=== PATIENT | female | born 1995 | race Hispanic/Latino ===

== ENCOUNTER 2017-06-25 20:50 | Emergency (ER) | payer OTHER, SELFPAY ==
[2017-06-25 21:37] LABS: Pregnancy Test - Urine (BHCG) Negative (Negative); Pregu Control Background? CLEAR/WHITE (CLR/WHITE); Pregu Control Bar Appear? YES (CONTROL BAR)
[2017-06-25 21:38] LABS: Bilirubin Negative (Negative); Blood, Urine Trace (Negative); Clarity Clear (Clear); Glucose, Urine (Dipstick) Negative (Negative); Leukocyte Negative (Negative); Nitrite Negative (Negative); Protein, Urine (Dipstick) Negative (Neg-Trace); Urobilinogen 0.2 mg/dL (0.2-1.0)
[2017-06-25] MEDS ORDERED: Ondansetron HCl/PF 4 MG/2 ML Vial ONE (21:38)
[2017-06-25 21:40] LABS: Bacteria/HPF 2+ HPF (None Seen); Squamous Epithelial 0-3 HPF (0-3); WBC/HPF 0-3 HPF (0-3)
[2017-06-25 22:15] LABS: ALT (SGPT) 10 U/L (8-55); AST (SGOT) 19 U/L (5-34); Albumin 4.5 g/dL (3.5-5.0); Alkaline Phosphatase 70 U/L (40-150); Anion Gap 20 mmol/L (10-20); BUN (Urea Nitrogen) 9 mg/dL (7.0-18.7); Bilirubin, Total 0.6 mg/dL (0.2-1.2); Calc. Creatinine Clearance 0 mL/min (70-130); Calcium 9.7 mg/dL (7.8-10.44); Carbon Dioxide 20 mmol/L (22-29); Chloride 104 mmol/L (98-107); Estimated GFR-MDRD Greater than 90; Globulin 3.7 g/dL (2.4-3.5); Glucose 97 mg/dL (70-105); Lipase 11 U/L (8-78); Potassium 3.8 mmol/L (3.5-5.1); Protein, Total 8.2 g/dL (6.0-8.3); Sodium 140 mmol/L (136-145)
[2017-06-25 22:16] LABS: Band 4 % (5-11); Eosinophils 1 % (0-10); Hemoglobin 13.7 g/dL (12.0-16.0); Lymphocytes 30 % (21-51); MDiff Complete? YES; Mean Corpuscular Volume 88.4 fl (81.0-99.0); Mean Platelet Volume 6.7 fL (7.4-10.4); Monocytes 4 % (0-10); Neutrophil 60 % (42-75); PLT Morphology Comment Appears Adequate; Platelet Count 361 thou/uL (130-400); RBC Distribution Width 11.3 % (11.5-14.5); RBC Morphology Normal; Red Blood Cell (RBC) Count 4.44 mill/uL (4.20-5.40); Small Platelets SLIGHT; White Blood Cell (WBC) Count 14.6 thou/uL (4.8-10.8)
[2017-06-25] MEDS ORDERED: Ketorolac Tromethamine 30 MG/ML VIAL ONE (23:18)
[2017-06-25] MEDS ORDERED: Mag-Al Plus 1200 MG/1200 MG/120 MG/30 ML UDCUP ONE (23:19)
[2017-06-25] MEDS ORDERED: Lidocaine Viscous Sol 2% 15 ml UD Cup ONE (23:19)
== END 2017-06-25 23:59 | disposition home or self-care (01) ==
LOC: BURERS 20:50
DX: K29.00 Acute gastritis without bleeding (principal)
CPT/HCPCS: 80053; 81003; 81015; 81025; 83690; 85025; 93005; 96361; 96374; 96375; J1885; J2405

== ENCOUNTER 2017-08-02 14:57 | Emergency (ER) | payer SELFPAY ==
[2017-08-02] MEDS ORDERED: Lorazepam 2 MG/ML VIAL ONE (15:40)
[2017-08-02 15:55] LABS: Bilirubin Negative (Negative); Blood, Urine Trace (Negative); Clarity Clear (Clear); Glucose, Urine (Dipstick) Negative (Negative); Leukocyte Negative (Negative); Nitrite Negative (Negative); Protein, Urine (Dipstick) Negative (Neg-Trace); Urobilinogen 0.2 mg/dL (0.2-1.0)
[2017-08-02 15:58] LABS: Pregnancy Test - Urine (BHCG) Negative (Negative); Pregu Control Background? CLEAR/WHITE (CLR/WHITE); Pregu Control Bar Appear? YES (CONTROL BAR); Specific Gravity 1.002 (1.002-1.036)
[2017-08-02 16:05] LABS: Amphetamine Not Detected (NotDetected); Barbiturates Screen Not Detected (NotDetected); Benzodiazepine Screen Not Detected (NotDetected); Cocaine Metabolite Screen Not Detected (NotDetected); Medtox Control Line Valid? VALID (VALID); Methadone Not Detected (NotDetected); Methamphetamine Not Detected (NotDetected); Opiate Screen Not Detected (NotDetected); Oxycodone Screen Not Detected (NotDetected); Phencyclidine (PCP) Not Detected (NotDetected); THC/Cannabinoid Screen Not Detected (NotDetected); Tricyclic Screen Not Detected (NotDetected)
[2017-08-02 16:05] LABS: #Basophils 0.2 thou/uL (0.0-0.2); #Eosinphils 0.2 thou/uL (0.0-0.7); #Lymphocytes 3.9 thou/uL (1.20-3.40); #Neutrophils 8.4 thou/uL (1.40-6.50); %Basophils 1.1 % (0.0-1.0); %Eosinophils 1.2 % (0.0-10.0); %Lymphocytes 28.6 % (21.0-51.0); %Monocytes 7.6 % (0.0-10.0); %Neutrophils 61.5 % (42.0-75.0); Hemoglobin 14.1 g/dL (12.0-16.0); Mean Corpuscular Hemoglobin 29.9 pg (27.0-31.0); Mean Corpuscular Volume 90.6 fl (81.0-99.0); Mean Platelet Volume 6.7 fL (7.4-10.4); Platelet Count 360 thou/uL (130-400); RBC Distribution Width 11.4 % (11.5-14.5); White Blood Cell (WBC) Count 13.7 thou/uL (4.8-10.8)
[2017-08-02 16:08] LABS: Bacteria/HPF 1+ HPF (None Seen); RBC/HPF 0-3 HPF (0-3); Squamous Epithelial 0-3 HPF (0-3); WBC/HPF 0-3 HPF (0-3)
[2017-08-02 16:15] LABS: Specific Gravity, Urine 1.005 (1.005-1.030)
[2017-08-02 16:16] LABS: PTT 29.7 SEC (22.9-36.1); Prothrombin Time 12.9 SEC (12.0-14.7)
[2017-08-02 16:17] LABS: ALT (SGPT) 9 U/L (8-55); AST (SGOT) 15 U/L (5-34); Albumin 4.7 g/dL (3.5-5.0); Alkaline Phosphatase 78 U/L (40-150); Anion Gap 13 mmol/L (10-20); BUN (Urea Nitrogen) 5 mg/dL (7.0-18.7); Bilirubin, Total 0.4 mg/dL (0.2-1.2); Calc. Creatinine Clearance 0 mL/min (70-130); Calcium 9.5 mg/dL (7.8-10.44); Carbon Dioxide 24 mmol/L (22-29); Chloride 108 mmol/L (98-107); Estimated GFR-MDRD Greater than 90; Globulin 3.7 g/dL (2.4-3.5); Glucose 113 mg/dL (70-105); Potassium 3.7 mmol/L (3.5-5.1); Protein, Total 8.4 g/dL (6.0-8.3); Sodium 141 mmol/L (136-145)
[2017-08-02 16:19] LABS: CKMB 0.4 ng/mL (0-6.6); Troponin I Less than 0.010 ng/mL (< 0.028)
--- NOTE | 2017-08-02 16:35 | RAD ---
PORTABLE CHEST 08/02/2017 An AP portable film at 1555 hours is compared with a 08/26/2011 study. The heart is normal in size, and the lungs are clear. No infiltrate or effusion was seen. There is no vascular congestion or edema. The mediastinum appears normal, and the trachea is midline. IMPRESSION: No acute thoracic findings. POS: HOME
== END 2017-08-02 17:10 | disposition home or self-care (01) ==
LOC: BURERS 14:57
DX: F41.9 Anxiety disorder, unspecified (principal)
CPT/HCPCS: 71010; 80053; 80306; 81003; 81015; 81025; 82553; 84443; 84484; 85025; 85610; 85730; 93005; 94760; 96374; J2060

== ENCOUNTER 2017-09-10 00:55 | Emergency (ER) | payer OTHER, SELFPAY ==
[2017-09-10] MEDS ORDERED: Prochlorperazine 10 MG/2 ML VIAL ONE (01:20)
[2017-09-10] MEDS ORDERED: Pantoprazole 40 MG VIAL ONE (01:20)
[2017-09-10 02:01] LABS: Hemoglobin 14.1 g/dL (12.0-16.0); Mean Corpuscular HGB CONC 32.5 g/dL (32.0-36.0); Mean Corpuscular Hemoglobin 30.3 pg (27.0-31.0); Mean Corpuscular Volume 93.1 fl (81.0-99.0); Mean Platelet Volume 6.6 fL (7.4-10.4); Platelet Count 363 thou/uL (130-400); RBC Distribution Width 11.3 % (11.5-14.5); Red Blood Cell (RBC) Count 4.65 mill/uL (4.20-5.40); White Blood Cell (WBC) Count 9.6 thou/uL (4.8-10.8)
[2017-09-10 02:04] LABS: ALT (SGPT) 30 U/L (8-55); AST (SGOT) 26 U/L (5-34); Albumin 4.2 g/dL (3.5-5.0); Alkaline Phosphatase 62 U/L (40-150); Anion Gap 16 mmol/L (10-20); BUN (Urea Nitrogen) 8 mg/dL (7.0-18.7); Bilirubin, Total 0.2 mg/dL (0.2-1.2); Calc. Creatinine Clearance 0 mL/min (70-130); Calcium 9.3 mg/dL (7.8-10.44); Carbon Dioxide 21 mmol/L (22-29); Chloride 109 mmol/L (98-107); Estimated GFR-MDRD Greater than 90; Glucose 125 mg/dL (70-105); Potassium 3.5 mmol/L (3.5-5.1); Protein, Total 8.2 g/dL (6.0-8.3); Sodium 142 mmol/L (136-145)
[2017-09-10 02:21] LABS: Eosinophils 3 % (0-10); Lymphocytes 44 % (21-51); MDiff Complete? YES; Monocytes 11 % (0-10); Neutrophil 40 % (42-75); PLT Morphology Comment Appears Adequate; RBC Morphology Normal; Reactive Lymphocytes 2 % (0-10)
== END 2017-09-10 02:23 | disposition home or self-care (01) ==
LOC: BURERS 00:55
DX: K52.9 Noninfective gastroenteritis and colitis, unspecified (principal); F41.9 Anxiety disorder, unspecified
CPT/HCPCS: 80053; 85025; 96361; 96374; 96375; C9113; J0780